=== PATIENT | female | born 1935 | race Caucasian/White ===

== ENCOUNTER 2017-02-22 11:11 | Emergency (ER) | payer MEDICARE, BC ==
[~2017-02-22 11:11] MED LIST: 8 HOUR650 MG PO; ACET500CAP PO; AMARYL1 MG PO; AMB10 PO; APRES25 PO; APRES50 PO; ASA5GR PO; ASAB PO; ASABAYER PO; ASCRIPTIN PO; ATV.5 PO; BIOTIN5 MG PO; BL LECITHIN400 MG PO; CALCIUM PO; CALTRA600D PO; CALTRAT600 PO; CARDCD180 PO; CARDCD240 PO; CARDIZEM LA180 MG PO; CARDU2 PO; CARDURA1 MG PO; CAT1 PO; CELEXA20 PO; CELEXA40 MG PO; CENTRUM TAB1 TAB PO; CHONDROITIN OR; CITRACAL PO; COLCH6 PO; COQ-10200 MG OR; COREG12 PO; COREG25 PO; COSAMIN DS1 TAB PO; CRESTOR40 MG PO; CYANO1000T PO; CYMBALTA20 PO; CYMBALTA30 PO; DEMA20 PO; DIFICID 200 MG200 MG PO; DOX10 PO; ELIQUIS 2.5 MG2.5 MG PO; ENTERAGAM PO; FIBER THERAPY PO; FIBERCON PO; FLAG500TAB PO; FLAGIV500 PO; FLORASTOR250 MG PO; GLIMEPIRIDE; GLUCCHONDR PO; GLUCPH PO; HARD NAILS OR; HARD NAILS PO; HYDROMET1 ML PO; INHALER PO; KLOR-CON 1010 MEQ PO; L-LYSINE HCL500 MG OR; L40 PO; LEVOTHYROXIN100 MCG PO; LEXAPRO10 PO; LUTEIN1 CAP PO; LUTEIN20 MG OR; LUTEIN20 MG PO; MACROBID PO; MAG6464 MG PO; MAGNESIUM PO; MAGONATE PO; MAXITROL OP; MELA3 PO; MELATONIN5 M1 PO; MERIBIN5 MG PO; MICRO-K10 MEQ PO; MIRALAXPKT PO; MONODOX100 MG PO; MOVEFREE PO; MUCINEX600 MG PO; MULTIVIT/MIN PO; MULTIVITAMI1 PO; MVI PO; NATURA2 OPH; NEUR100 PO; NIFEDICAL XL30 MG PO; NORV10 PO; NORV5 PO; OSTEO BI-FLEX1 EACH PO; PLAVIX PO; POT GLUCONAT550 M1 PO; PRADAXA150 MG PO; PRADAXA75 MG PO; PRESERVISION A1 EACH PO; PRESERVISION PO; PRILO PO; PROMEGA PO; PROTONIX PO; REFRESH OPH; RISAQUAD CAPSULE PO; RYTHMOL150 MG PO; SEPTRA DS1 TAB PO; SUCR PO; SULAR25.5 MG PO; SYMBICORT 160/41 INH INH; SYN.15 PO; SYN1 PO; T PO; TAMBO50 PO; TAZTIA XT PO; TESSALON200 MG PO; TRAN200 PO; TRANDAT300 PO; VANC125UDL PO; VANCOCIN HCL125 MG PO; VISION FORMULA PO; VITAMIN B-121000 MC1 PO; VITAMIN D1000 UNI1 PO; VITAMIN D2000 UNIT PO; VITAMIN D31000 UNIT PO; VITE PO; VITRON C PO; WELCHOL 625 MG625 MG PO; WELCHOL625 MG PO; Z100 PO; Z5 PO; ZANAFLEX2 MG PO; ZANTAC 150 PO; ZANTAC300 MG PO; ZETIA PO; [UNRECOGNIZED DRUG - OTHER]; [UNRECOGNIZED DRUG - OTHER] PO; [UNRECOGNIZED DRUG - OTHER] PO; [UNRECOGNIZED DRUG - OTHER] PO
[2017-02-22 12:21] LABS: BASOPHILS 0.4 %; BASOPHILS ABSOLUTE 0.03 10/3/uL (0.0-0.16); EOSINOPHILS 1.8 %; EOSINOPHILS ABSOLUTE 0.14 10/3/uL (0.0-0.53); ER CBC TAT 0 Hrs 07 Mins; HEMATOCRIT 36.3 % (36.0-48.0); HEMOGLOBIN 11.9 g/dL (12.0-16.0); IMMATURE GRANULOCYTES 0.1 %; IMMATURE GRANULOCYTES ABSOLUTE 0.01 10/3/uL (0.0-0.11); LYMPHOCYTES 20.4 %; LYMPHOCYTES ABSOLUTE 1.57 10/3/uL (0.67-4.30); MANUAL DIFF NO %; MEAN CORPUS HGB CONC 32.8 g/dL (32.0-36.0); MEAN CORPUSCULAR VOLUME 94.5 fL (80-100); MEAN PLATELET VOLUME 9.9 fL (9.2-13.0); MONOCYTES 11.4 %; MONOCYTES ABSOLUTE 0.88 10/3/uL (0.21-1.20); NEUTROPHILS 65.9 %; NEUTROPHILS ABSOLUTE 5.06 10/3/uL (2.02-8.40); PLATELET COUNT 202 10/3/uL (150-400); RBC DISTRIBUTION WIDTH 14.9 % (12.0-16.0); RED CELL COUNT 3.84 10/6/uL (4.0-5.6); WHITE BLOOD CELLS 7.7 10/3/uL (4.5-10.5)
[2017-02-22 12:25] LABS: INTERNATIONAL NORMAL RATI 1.3 UNITS (-); PARTIAL THROMBO TIME 38.7 SEC (22.5-37.2); PROTIME (NOT ORD) 16.1 SEC (12.0-14.5)
[2017-02-22 13:14] LABS: A/G RATIO 0.9 (0.7-1.9); ALBUMIN 3.3 G/DL (3.5-5.0); ALKALINE PHOSPHATASE 55 U/L (45-117); BUN (BLOOD UREA NITROGEN) 19 MG/DL (6-23); CALCIUM, SERUM 9.2 MG/DL (8.5-10.4); CHLORIDE, SERUM 104 MMOL/L (96-112); CO2 (CARBON DIOXIDE) 29 MMOL/L (24-34); CREATININE 1.49 MG/DL (0.55-1.02); GFR AFRICAN AMERICAN 38 ML/MIN (>=60); GFR NON AFRICAN AMERICAN 33 ML/MIN (>=60); GLOBULIN 3.6 G/DL (2.5-4.1); GLUCOSE, SERUM 100 MG/DL (60-99); POTASSIUM, SERUM 3.9 MMOL/L (3.5-5.3); SGOT(AST) 18 U/L (5-40); SGPT(ALT) 18 U/L (5-65); SODIUM, SERUM 140 MMOL/L (135-148); TOTAL BILIRUBIN 0.4 MG/DL (0-1.2); TOTAL PROTEIN 6.9 G/DL (6.0-8.5); TROPONIN I <0.02 NG/ML (<0.05)
[2017-02-22] MEDS ORDERED: SYN1 PO (14:21)
[2017-02-22] MEDS ORDERED: PRILO PO (14:22)
[2017-02-22] MEDS ORDERED: Z100 PO (14:24)
[2017-02-22] MEDS ORDERED: NORV5 PO (14:24)
[2017-02-22] MEDS ORDERED: ELIQUIS 2.5 MG2.5 MG PO (14:25)
[2017-02-22] MEDS ORDERED: PROTONIX PO (14:26)
[2017-02-22] MEDS ORDERED: L40 PO (14:27)
[2017-02-22] MEDS ORDERED: APRES25 PO (14:29)
[2017-02-22] MEDS ORDERED: RYTHMOL150 MG PO (14:30)
[2017-02-22] MEDS ORDERED: RISAQUAD PO (14:32)
[2017-02-22] MEDS ORDERED: COREG25 PO (14:34)
[2017-02-22] MEDS ORDERED: VITE PO (14:35)
[2017-02-22] MEDS ORDERED: MEVACOR40 MG PO (14:35)
[2017-02-22] MEDS ORDERED: MULTIVITAMI1 PO (14:36)
[2017-02-22] MEDS ORDERED: BIOTIN10 MG PO (14:36)
[2017-02-22] MEDS ORDERED: LUTEIN20 MG PO (14:37)
[2017-02-22] MEDS ORDERED: FIBERCON PO (14:40)
[2017-02-22] MEDS ORDERED: FIBER PO (14:40)
[2017-02-22] MEDS ORDERED: VISION FORMULA PO (14:41)
[2017-02-22] MEDS ORDERED: PROBIOTIC PO (14:41)
[2017-02-22] MEDS ORDERED: OSTEO BI-FLEX1 EACH PO (14:42)
[2017-02-22] MEDS ORDERED: ZOL50 PO (14:43)
[2017-02-22] MEDS ORDERED: MELATONIN10 M2 PO (14:44)
[2017-02-22] MEDS ORDERED: VITAMIN D31000 UNIT PO (14:45)
[2017-02-22] MEDS ORDERED: MIRAPEX5 PO (14:46)
[2017-02-22] MEDS ORDERED: CALTRAT600 PO (14:46)
[2017-02-22] MEDS ORDERED: MAGOX4 PO (14:47)
== END 2017-02-22 15:20 | disposition home or self-care (01) ==
LOC: ER 11:11
PROVIDERS: Emergency Medicine
DX: R07.81 Pleurodynia (principal); R05 Cough; J44.9 Chronic obstructive pulmonary disease, unspecified; G47.30 Sleep apnea, unspecified; I50.9 Heart failure, unspecified; I48.91 Unspecified atrial fibrillation; N18.9 Chronic kidney disease, unspecified; E03.9 Hypothyroidism, unspecified; Z86.73 Personal history of transient ischemic attack (TIA), and cerebral infarction without residual deficits; Z86.718 Personal history of other venous thrombosis and embolism; Z88.2 Allergy status to sulfonamides; Z88.8 Allergy status to other drugs, medicaments and biological substances; Z79.891 Long term (current) use of opiate analgesic; Z79.899 Other long term (current) drug therapy; Z95.0 Presence of cardiac pacemaker
CPT/HCPCS: 71010; 80053; 83880; 84484; 85025; 85610; 85730; 93005; 99284